=== PATIENT | female | born 2000 | race Caucasian/White ===

== ENCOUNTER 2022-06-01 21:20 | Emergency (ER) | payer BC ==
[2022-06-01] MEDS ORDERED: HYDROmorphone 1 MG/ML Syringe IVPUSH ONE (21:26)
[2022-06-01] MEDS ORDERED: Sodium Chloride 0.9% 1,000 ML IV ONE (21:26)
[2022-06-01] MEDS ORDERED: Ondansetron 4 MG/2 ML SDV IVPUSH ONE ×2 (21:48→23:13)
[2022-06-01] MEDS ORDERED: Ondansetron 4 MG/2 ML SDV ONE (21:49)
[2022-06-01 22:01] LABS: ANION GAP 10.8 mmol/L (5-15)
[2022-06-01] MEDS ORDERED: Iopamidol 755 Mg/ML 75 ML Bottle IVPUSH ONE (22:44)
[2022-06-01] MEDS ORDERED: Sodium Chloride 0.9% 50 ML IV SCH (22:45)
[2022-06-01] MEDS ORDERED: Ketorolac 30 MG/ML SDV IVPUSH ONE (23:26)
[2022-06-02] MEDS ORDERED: traMADol 50 MG Tab PO ONE (00:04)
== END 2022-06-02 00:30 | disposition home or self-care (01) ==
LOC: KA.ED 21:20
DX: A09 Infectious gastroenteritis and colitis, unspecified (principal); Z88.0 Allergy status to penicillin
CPT/HCPCS: 36415; 74177; 80053; 81001; 81025; 83690; 85025; 96361; 96374; 96375; 96376; 99283; 99284-25; A9270-GY; J1170; J1885; J2405; J7030; Q9967